=== PATIENT | male | born 2000 | race Caucasian/White ===

== ENCOUNTER 2021-07-18 01:02 | Emergency (ER) | payer OTHER ==
[~2021-07-18] VITALS: Ht 172.7 cm; Wt 68.2 kg
[2021-07-18 06:38] LABS: BASO % 0.3 % (0.0-1.0); EOS # 0.1 10^3/uL (0.0-0.5); EOS % 1.3 % (0.0-3.0); HEMATOCRIT 45.3 % (42.0-52.0); HEMOGLOBIN 15.4 g/dl (13.5-17.5); LYMPH # 1.9 10^3/uL (1.5-5.0); LYMPH % 20.6 % (24.0-44.0); MEAN CORPUSCULAR VOLUME 88.3 fl (80.0-96.0); MONO # 0.7 10^3/uL (0.0-0.8); NEUTROPHILS # 6.3 10^3/uL (1.5-8.5); NEUTROPHILS % 69.6 % (36.0-66.0); PLATELET COUNT, AUTOMATED 231 10^3/uL (150-450); RED BLOOD COUNT 5.13 10^6/uL (4.30-6.10); WHITE BLOOD COUNT 9.1 10^3/uL (4.0-10.0)
[2021-07-18 07:06] LABS: CK-MB VALUE MASS 1.5 NG/ML (<3.6); CPK CREATINE PHOSPHOKINASE 578 U/L (39-308); MB/CK RELATIVE INDEX 0.26 (< OR =4)
[2021-07-18 07:13] LABS: BLOOD UREA NITROGEN 12 MG/DL (7-18); CALCIUM LEVEL 10.1 MG/DL (8.5-10.1); CARBON DIOXIDE LEVEL 25 MEQ/L (21-32); CHLORIDE LEVEL 111 MEQ/L (98-107); CREATININE FOR GFR 0.85 MG/DL (0.70-1.30); ETHYL ALCOHOL (ETHANOL) < 0.003 % (0.000-0.010); GLUCOSE, FASTING 94 MG/DL (70-100); POTASSIUM SERUM 4.2 MEQ/L (3.5-5.1); SODIUM LEVEL 143 MEQ/L (136-145)
[2021-07-18] MEDS ORDERED: NS 1,000 ML IV ONE (07:35)
[2021-07-18] MEDS ORDERED: KETOROLAC 30 MG/ML 1ML VIAL IV ONE (07:35)
[2021-07-18 08:51] VITALS: BP 122/70
== END 2021-07-18 08:53 | disposition home or self-care (01) ==
LOC: M ED 01:02 → EDBD 01:02 → M ED 08:53
DX: R55 Syncope and collapse (principal); S00.31XA Abrasion of nose, initial encounter; W18.39XA Other fall on same level, initial encounter; Y92.89 Other specified places as the place of occurrence of the external cause
CPT/HCPCS: 70450; 72125; 80048; 82077; 82550; 82553; 84443; 84484; 85025; 93005; 93041; 94760; 96361; 96374; 99285; J1885

== ENCOUNTER → 2023-09-08 | Outpatient (CLI) | payer OTHER | LOC: M WHC 11:35 | PROVIDERS: ATTEND Physician Assistant | DX: N64.4 Mastodynia (principal); N62 Hypertrophy of breast | CPT/HCPCS: 77066; G0279 ==